=== PATIENT | female | born 2005 | race Caucasian/White ===

== ENCOUNTER → 2024-04-21 | Emergency (ER) | payer OTHER ==
[~2024-04-21] VITALS: Ht 160 cm; Wt 54.4 kg
[~2024-04-21] MED LIST: CEFD300C3 PO; CEFTRIAXONE 1GM BAG (ER ONLY) 50 ML IV ONE; CT SWABBABLE VALVE TRANS SET 1 EA INFUS.SET MC ONE; IOHEXOL-300 100 ML VIAL IV ONE; IV NS 0.9% 250 ML IV ONE; KETOROLAC TROMETHAMINE 15 MG/ML VIAL ONE; SULF1TAB48 PO; SULFAMETH/TRIMETH 800/160 MG 1 UDTAB TABLET ONE
[2024-04-21 10:51] LABS: PREGNANCY TEST URINE QUAL NEGATIVE (NEGATIVE)
[2024-04-21] MEDS: IV NS 0.9% 1,000 ML BAG IV ONE (10:55)
[2024-04-21 11:04] LABS: BASOPHILS % (AUTO) 0.2 % (0.0-2.0); EOSINOPHILS # (AUTO) 0.4 K/uL (0.0-0.7); EOSINOPHILS % (AUTO) 3.4 % (0.0-6.0); HEMATOCRIT 43 % (33-45); HEMOGLOBIN 13.9 g/dL (11.5-14.8); LYMPHOCYTES # (AUTO) 1.2 K/uL (0.8-4.8); LYMPHOCYTES % (AUTO) 9.2 % (20.0-44.0); MEAN CORPUSCULAR HEMOGLOBIN 27 PG (26.0-33.0); MEAN CORPUSCULAR HGB CONC 33 g/dl (31.0-36.0); MEAN CORPUSCULAR VOLUME 83 fL (82-100); MONOCYTES # (AUTO) 0.5 K/uL (0.1-1.30); MONOCYTES % (AUTO) 4.3 % (2.0-12.0); NEUTROPHILS # (AUTO) 10.6 K/uL (1.8-8.9); NEUTROPHILS % (AUTO) 82.9 % (43.0-81.0); PLATELET COUNT (AUTO) 247 K/uL (150-450); RED BLOOD CELL COUNT(AUTO) 5.13 MIL/uL (4.0-5.2); RED CELL DISTRIBUTION WIDTH 13.8 % (11.5-15.0); WHITE BLOOD COUNT (AUTO) 12.8 K/uL (4.3-11.0)
[2024-04-21 11:12] LABS: CALCIUM, SERUM 9.2 mg/dL (8.5-10.1); CREATININE 0.8 mg/dL (0.6-1.3); POTASSIUM 3.6 mmol/L (3.5-5.1)
[2024-04-21 11:15] LABS: INR 1.05 (0.91-1.10); PARTIAL THROMBOPLASTIN TIME 31.5 SEC (24.3-34.3); PROTHROMBIN TIME 10.8 SECS (9.2-11.1)
[2024-04-21 11:18] LABS: ALBUMIN 3.4 g/dL (3.4-5.0); BILIRUBIN,DIRECT 0.1 mg/dL (0.0-0.2); BILIRUBIN,TOTAL 0.3 mg/dL (0.2-1.0); TOTAL PROTEIN, SERUM 8.2 g/dL (6.4-8.2)
[2024-04-21] MEDS: CEFTRIAXONE 1 G in IV D5W 50 ML IV ONE (13:48)
[2024-04-21] MEDS: KETOROLAC TROMETHAMINE 15 MG/ML VIAL IV ONE (13:49)
[2024-04-21] MEDS: SULFAMETH/TRIMETH 800/160 MG 1 UDTAB TABLET PO ONE (13:49)
[2024-04-21 14:21] VITALS: BP 100/72; TEMP 98.1; O2SAT 98
== END | disposition home or self-care (01) ==
LOC: ER 10:03
DX: H57.12 Ocular pain, left eye (principal)
CPT/HCPCS: 99285; 96365; 70481; 96361; 96375; 85025; 80048; 80076; 84703; 36415; 85730; J0696 ×2; J7060; J7030; J7050; A4223; Q9967; J1885